=== PATIENT | female | born 1940 | race Two or more races ===

== ENCOUNTER 2018-12-17 18:02 | Outpatient (CLI) | payer MEDICARE, OTHER | END 2018-12-17 18:03 | disposition home or self-care (01) | LOC: C.SLEEP 18:03 | DX: G47.33 Obstructive sleep apnea (adult) (pediatric) (principal) ==

== ENCOUNTER 2019-02-26 19:18 | Outpatient (CLI) | payer MEDICARE, OTHER | END 2019-02-26 19:19 | disposition home or self-care (01) | LOC: C.SLEEP 19:19 ==